=== PATIENT | female | born 1985 | race Caucasian/White ===

== ENCOUNTER 2023-07-16 10:26 | Emergency (ER) | payer SELFPAY ==
[2023-07-16] MEDS ORDERED: Ibuprofen 200 MG TAB ONE (11:35)
[2023-07-16 12:16] LABS: SARS-CoV-2 NAA Rapid Test Not Detected (NotDetected)
== END 2023-07-16 12:00 | disposition home or self-care (01) ==
LOC: ERS 10:26
DX: J11.1 Influenza due to unidentified influenza virus with other respiratory manifestations (principal); F17.210 Nicotine dependence, cigarettes, uncomplicated
CPT/HCPCS: 71045